=== PATIENT | male | born 1985 | race Caucasian/White ===

== ENCOUNTER → 2021-02-06 | Day surgery (SDC) | payer OTHER ==
[~2021-02-06] VITALS: Ht 182.9 cm; Wt 81.6 kg
[~2021-02-06] MED LIST: ASPIRIN EC81 MG PO; CLARITIN10 M2 PO; DAILY VALUE1 EACH PO; FIBERCON625 MG PO; LYSINE1000 MG PO
== END | disposition home or self-care (01) ==
LOC: FAS 06:09
DX: M75.01 Adhesive capsulitis of right shoulder (principal)
CPT/HCPCS: J0171; J2250; J2795; J7120